=== PATIENT | female | born 1985 | race Caucasian/White ===

== ENCOUNTER 2018-11-20 08:35 | Outpatient (CLI) | payer SELFPAY ==
[2018-11-20] MEDS: Lactated Ringers 1,000 ML 125 ML IV (09:03)
[2018-11-20 09:07] VITALS: BMI 29.4
--- NOTE | 2018-11-22 06:56 | PCM.HP.BLA ---
History and Physical Date of Admission: 11/20/18 [facility] History of this : 33 yo female Ab0 with EDC 12/06/2018 by late Ultrasound, presents to Labor and Delivery for external cephalic version. care unremarkable. Follows at [facility] with customer program specialist. Pertinent Past Medical History: non-smoker Allergies: NKDA Medications: Vitamins Review of Systems: Non-contributory PHYSICAL EXAMINATION General Appearence: 33 yo female in no acute distress Vital Signs: AF, VSS Heart: RRR without rubs or gallops Lungs: CTA x 2 Breasts: deferred Abdomen: gravid Pelvis: Cervix: not examined Presentation: cephalic Station: no examined Fetus: single Size: AGA Movement: present Heart: present and reactive Impression /Plan: Intrauterine at 37+ weeks gestation with breech presentation. Plan external cephalic version attempt. Discussed RBAs and all questions answered.
--- NOTE | 2018-11-22 07:03 | OP.PCM_ITS ---
Report of Operation Date of Procedure: 11/20/18 Pre-Operative Diagnosis: Breech Presentation, 37+ Week Intrauterine Post-Operative Diagnosis: Breech Presentation, 37+ Week Intrauterine Surgery/Procedure Performed:: External Cephalic Version Attempt Description of Surgical Findings:: Pritchett in garrett breech presentation with posterior fundal placenta and normal amounts of amniotic fluid Type of Anesthesia:: None Estimated Blood Loss (mL): None Description of Procedure: After confirming reactive heart tones, ultrasound visualized the baby in a garrett breech position with the placenta noted as above as well as amniotic fluid noted as above. 4 attempts were made to rotate the fetus to cephalic presentation. 3 were attempted in the counterclockwise direction which provided the most movement of the baby and one was attempted in the clockwise direction. All of these attempts were unsuccessful likely due to engagement of the breech in the pelvis. Throughout the procedure heart tones were monitored with ultrasound with the procedure noted to be well-tolerated. Patient was monitored for 2 hours with reactive heart tones noted throughout and no decelerations. She was discharged to home and scheduled for a section on November 30. Patient is to continue her care with her seeing eye dog trainer and report immediately to labor and delivery if rupture of membranes or labor ensues.
== END 2018-11-20 12:10 | disposition home or self-care (01) ==
LOC: WPOUT 08:51 → WP 08:52
PROVIDERS: Referring Provider Obstetrics & Gynecology; Visit Provider Obstetrics & Gynecology
DX: O32.1XX0 Maternal care for breech presentation, not applicable or unspecified (principal); Z3A.37 37 weeks gestation of pregnancy
CPT/HCPCS: 96360; 96361 ×2; 36415; 59025; 59050; 59412; 76815; 86850; 86900; 86901; 99218; J7120; G0378

== ENCOUNTER 2018-11-26 05:45 | Outpatient (CLI) | payer SELFPAY ==
[2018-11-26 06:00] VITALS: BMI 29.5
--- NOTE | 2018-11-26 09:57 | OB.TRI.NOTE ---
History of Present Illness Was patient seen by the physician?: Yes Reason For Visit: R/O LABOR Date of Service: 11/26/18 Final BARR[place]: 12/06/18 Final [place] Source: US >20 weeks Gestational age: 38 Weeks and 4 Days History of Present Illness: 38+ week intrauterine who presents with some contractions. 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 Patient has not yet had any labs drawn. Baby is also known to be breech and version was attempted but unsuccessful. Allergies No Known Allergies Allergy (Verified 11/20/18 09:10) NST - FHR Rate Baby A NST Reactive:: Yes FHR Category:: Category I Impression/Plan 38+ week intrauterine with false labor and breech presentation. Not in labor. Reactive nonstress test. Will draw labs and released to home. Plan primary section next Friday. Return if labor resumes.
[2018-11-26 10:31] LABS: Color, Urine Yellow (Yellow); Glucose, Dipstick Normal (Normal); Ketone-Dipstick 5 mg/dl (Negative); Leukocyte Esterase-Dipstick 500 /ul (Negative); Nitrite-Dipstick Negative (Negative); Occult Blood-Urine 10 /ul (Negative); Protein-Dipstick 15 mg/dl (Negative); Urine Bilirubin Dipstick Negative (Negative); Urine Clarity Sl. Cloudy (Clear); Urine Urobilinogen Normal (Normal); Urine pH 6.5 (5.0 - 8.0)
[2018-11-26 10:37] LABS: Absolute Lymphocyte Count 2.65 X10^3/uL (0.83-4.51); Absolute Neutrophil Count 7.1 X10^3/uL (2.0-7.7); Basophil# 0.02 X10^3/uL; Basophil% 0.2 % (0-1); Eosinophil# 0.07 X10^3/uL; Eosinophils% 0.7 % (0-5); Hemoglobin 12.2 g/dL (12.0-15.0); Lymphocyte # 2.65 X10^3/ul (4.0); Lymphocyte % 25.1 % (19-41); Mean Corp Hgb Conc 34.9 g/dL (32-36); Mean Corpuscular Hgb 34.2 pg (27.0-32.0); Mean Platelet Vol. 8.8 fl (6.2-12.0); Monocyte# 0.67 X10^3/uL; Monocyte% 6.3 % (0-10); NRBC Flagged by Analyzer 0 % (0-5); Neutrophil % 67.2 % (47-70); Platelet Count 240 K/mm3 (150-450); RBC Distribution Width CV 12.7 % (11.6-14.6); RBC Distribution Width SD 45.6 fl (35.1-43.9); Red Blood Count 3.57 M/mm3 (4.2-5.4); White Blood Count 10.6 K/mm3 (4.4-11.0)
[2018-11-26 10:50] LABS: Red Blood Cells-Urine 0-5 SEEN /hpf (0-5); Squamous Epithelial Cells - UA 10-25 SEEN /hpf (5-10); White Blood Cells 10-25 SEEN /hpf (0-5)
[2018-11-26 10:51] LABS: Bacteria 2+ /hpf (None Seen); Mucous, Urine RARE /hpf (<or=2+); Yeast-Urine RARE /hpf (None Seen)
[2018-11-26 12:24] LABS: Rubella IgG 169.5 IU/mL
[2018-11-26 12:57] LABS: HIV - WCH Non-Reactive (Nonreactive); Hepatitis B Surface Antigen Non-Reactive (Nonreactive); Hepatitis C Antibody Non-Reactive (Nonreactive)
[2018-11-26 14:13] LABS: Chlamydia Trachomatis by PCR Negative (Negative); Neisserai gonorrhoeae by PCR Negative (Negative); Probe Check PASS; Sample Adequacy Control PASS; Specimen Processing Control PASS
[2018-11-27 01:46] LABS: Rapid Plasmin Reagin (RPR) NONREACTIVE (NONREACTIVE)
== END 2018-11-26 10:45 | disposition home or self-care (01) ==
LOC: WPOUT 05:58 → WP 11-27 13:31
PROVIDERS: Referring Provider Obstetrics & Gynecology; Visit Provider Obstetrics & Gynecology
DX: O47.1 False labor at or after 37 completed weeks of gestation (principal); O32.1XX0 Maternal care for breech presentation, not applicable or unspecified; Z3A.38 38 weeks gestation of pregnancy
CPT/HCPCS: 36415; 59025; 59050; 76815; 81001; 85025; 86592; 86703; 86762; 86803; 86850; 86900; 86901; 87340; 87491; 87591; 99218; G0378

== ENCOUNTER 2018-11-30 10:35 | Inpatient (IN) | payer SELFPAY ==
--- NOTE | 2018-11-29 23:04 | HP.PCM_ITS ---
History and Physical Date of Admission: 11/30/18 [facility] [place] ANTEPARTUM RECORD - HISTORY AND PHYSICAL (11/29/2018) History of This : This is a 33-year-old multiparous patient with breech presentation. Unable to complete version on labor and delivery approximately 1- 2 weeks ago. Given this we plan to proceed with primary section. OB Physician: SMITHA [place]'s Physician: ...................................................................... : 1985 Age: 33 Address: [address] [place] [address] Phone: (h) [phone] ([phone] Insurance Carrier: Emergency Contact: ...................................................................... Final BARR[place]: 12/06/18 By Ultrasound: PARITY: (G-Total Pregnancies P-Fullterm,Premature,Induced AB,Spont AB, Ectopics, Multiple,Living) [place] CONFIRMATION: By LMP: 03/08/18 Final [place]: 12/06/18 OB PROBLEM LIST: PNC with nailhead operator; Breech presentation unable to do version ALLERGIES:NKDA SOCIAL HISTORY: Non-smoker Job Description - [employer] of - [employer] Love Children Name(s) - Eran Menezes Frantz Melissa PHYSICAL EXAMINATION General Appearence: 33 yo female in no acute distress Vital Signs: AF, VSS Heart: RRR without rubs or gallops Lungs: CTA x 2 Breasts: deferred Abdomen: gravid Pelvis: Cervix: Presentation: cephalic Station: Fetus: Size: AGA Movement: present Heart: present Labs for : VANITA LOVE since 03/11/2018 ORDER DATEIN DESCRIPTION VALUE UNITS RANGE A+ COMMENT RAPID PLASMIN REAGIN (RPR) 11/26/18 NOTE Original Ordering Provider: Eden Leslie RPR NONREACTIVE NONREACTIVEw Reviewed by EDEN CT/[facility] BY PCR 11/26/18 NOTE Original Ordering Provider: Eden Leslie CHLAM TRAC PCR Negative Negative NG BY PCR Negative Negative Reviewed by EDEN HEPATITIS C ANTIBODY 11/26/18 NOTE Original Ordering Provider: Eden Leslie HEPATITIS C AB Non-Reactive Nonreactive Non Reactive: < 0.8 Equivocal: >/= 0.8 to < 1.0 Reactive: >/= 1.0 The CDC recommends that a reactive/equivocal HCV antibody result be followed up by the HCV Nucleic Acid Amplification test (824980) Reviewed by EDEN HEPATITIS B SURFACE ANTIGEN 11/26/18 NOTE Original Ordering Provider: Eden Leslie HEPB SURFACE AG Non-Reactive Nonreactive Reviewed by EDEN HIV - [facility] 11/26/18 NOTE Original Ordering Provider: Eden Leslie HIV [facility] Non-Reactive Nonreactive Reviewed by EDEN RUBELLA IGG 11/26/18 NOTE Original Ordering Provider: Eden Leslie RUBELLA IGG 169.5 IU/mL Antibody results Interpretation of Immune Status < 5 IU/ml Presumed Non-immune 5 - < 10 IU/ml Equivocal > or = 10 IU/ml Presumed Immune Reviewed by EDEN TYPE AND SCREEN 11/26/18 Reason for Type AND Screen/Red Cells: ROUTINE [facility]~[address] [place], [address]~ BLOOD TYPE GEL A POSITIVE N ANTIBODY SCREEN NEGATIVE N Reviewed by EDEN URINALYSIS, COMPLETE 11/26/18 NOTE Original Ordering Provider: Eden Leslie COLOR Yellow Yellow CLARITY Sl. Cloudy Clear GLUCOSE, UR Normal mg/dl Normal BILIRUBIN URINE Negative mg/dL Negative KETONE UR 5 mg/dl Negative H SP.GR. DIPSTX 1.010 1.002-1.030 PH UR 6.5 5.0 - 8.0 PROT DIPSTX 15 mg/dl Negative H UROBILI Normal mg/dl Normal NITRITE UR Negative Negative OCCULT BLOOD-UR 10 /ul Negative H LEUK ESTERASE 500 /ul Negative H WBC 10-25 SEEN /hpf 0-5 RBC-UA 0-5 SEEN /hpf 0-5 SQUAM EPI 10-25 SEEN /hpf 5-10 BACTERIA 2+ /hpf None Seen MUCUS, URINE RARE /hpf <OR=2+ YEAST-URINE RARE /hpf None Seen Reviewed by EDEN CBC W/DIFF, AUTOMATED 11/26/18 NOTE Original Ordering Provider: Eden Leslie WBC 10.6 K/mm3 4.4-11.0 RBC 3.57 M/mm3 4.2-5.4 L HGB 12.2 g/dL 12.0-15.0 HCT 35.0 % 37-47 L MCV 98.0 fL 81-99 MCH 34.2 pg 27.0-32.0 H MCHC 34.9 g/dL 32-36 RDW CV 12.7 % 11.6-14.6 RDW SD 45.6 fl 35.1-43.9 H PLT 240 K/mm3 150-450 MPV 8.8 fl 6.2-12.0 NEUT% 67.2 % 47-70 LY% 25.1 % 19-41 MONO% 6.3 % 0-10 EO% 0.7 % 0-5 BASO% 0.2 % 0-1 w IM GRAN % 0.500 % 0.0-0.9 IG% - Immature Granulocytes (promyelocytes, myelocytes and metamyelocytes) > 1% indicates that a LEFT SHIFT is Present. ABSOLUTE NEUT 7.1 X10 3/uL 2.0-7.7 ABSOLUTE LYMPH 2.65 X10 3/uL 0.83-4.51 NRBC, FLAGGED 0 % 0-5 Reviewed by EDEN OPERATIVE REPORT 11/22/18 [facility] Medical Records Department [address] [place] [id number] Operative Report 11/22/18 0703 MR#: [id number] Acct: [id number] Name: VANITA LOVE Rep #: [id number] : 1985 33 From: Eden Leslie MD PCP: Status: DEP FIORDALIZAI Y Location: [facility] Report of Operation Date of Procedure: 11/20/18 Pre-Operative Diagnosis: Breech Presentation, 37+ Week Intrauterine Post-Operative Diagnosis: Breech Presentation, 37+ Week Intrauterine Surgery/Procedure Performed:: External Cephalic Version Attempt Description of Surgical Findings:: Pritchett in garrett breech presentation with posterior fundal placenta and normal amounts of amniotic fluid Type of Anesthesia:: None Estimated Blood Loss (mL): None Description of Procedure: After confirming reactive heart tones, ultrasound visualized the baby in a garrett breech position with the placenta noted as above as well as amniotic fluid noted as above. 4 attempts were made to rotate the fetus to cephalic presentation. 3 were attempted in the counterclockwise direction which provided the most movement of the baby and one was attempted in the clockwise direction. All of these attempts were unsuccessful likely due to engagement of the breech in the pelvis. Throughout the procedure heart tones were monitored with ultrasound with the procedure noted to be well-tolerated. Patient was monitored for 2 hours with reactive heart tones noted throughout and no decelerations. She was discharged to home and scheduled for a section on November 30. Patient is to continue her care with her nailhead operator and report immediately to labor and delivery if rupture of membranes or labor ensues. 11/22/18708 Date Eden Leslie MD CC: Eden Leslie MD Signed Reviewed by EDEN HISTORY AND PHYSICAL EXAM 11/22/18 [facility] Medical Records Department [address] [place] [id number] History and Physical 11/22/18 0656 MR#: [id number] Acct: [id number] Name: VANITA LOVE Rep #: [id number] : 1985 33 From: Eden Leslie MD PCP: Status: TALI Bosch Location: [facility] History and Physical Date of Admission: 11/20/18 [facility] History of this : 33 yo female Ab0 with EDC 12/06/2018 by late Ultrasound, presents to Labor and Delivery for external cephalic version. care unremarkable. Follows at [facility] with nailhead operator. w Pertinent Past Medical History: non-smoker Allergies: NKDA Medications: Vitamins Review of Systems: Non-contributory PHYSICAL EXAMINATION General Appearence: 33 yo female in no acute distress Vital Signs: AF, VSS Heart: RRR without rubs or gallops Lungs: CTA x 2 Breasts: deferred Abdomen: gravid Pelvis: Cervix: not examined Presentation: cephalic Station: no examined Fetus: single Size: AGA Movement: present Heart: present and reactive Impression /Plan: Intrauterine at 37+ weeks gestation with breech presentation. Plan external cephalic version attempt. Discussed RBAs and all questions answered. w 11/22/18 0703 Date [facility]: Date (if applicable) w CC: dEen Leslie MD Signed Reviewed by EDEN FREDERICK AND ERICA 11/20/18 Reason for Type AND Screen/Red Cells: ROUTINE [facility]~[address] [place], [address]~ BLOOD TYPE GEL A POSITIVE N ANTIBODY SCREEN NEGATIVE N Reviewed by EDEN Impression /Plan: Intrauterine in garrett breech presentation. Unsuccessful version attempt. Plan primary section. Preparations in progress for delivery.
[2018-11-30] VITALS (16 sets, daily range): BP systolic 112–129; BP diastolic 46–76; PULSE 88–113; RESP 14–20; TEMP 36.5–36.8; O2SAT 92–99; BMI 29.3
[2018-11-30] MEDS: Lactated Ringers 1,000 ML 999 ML IV (10:50)
[2018-11-30 11:25] LABS: Absolute Lymphocyte Count 3.45 X10^3/uL (0.83-4.51); Absolute Neutrophil Count 8.2 X10^3/uL (2.0-7.7); Basophil# 0.02 X10^3/uL; Basophil% 0.2 % (0-1); Eosinophil# 0.05 X10^3/uL; Eosinophils% 0.4 % (0-5); Hematocrit 36.3 % (37-47); Hemoglobin 12.7 g/dL (12.0-15.0); Lymphocyte # 3.45 X10^3/ul (4.0); Lymphocyte % 27.4 % (19-41); Mean Corpuscular Volume 97.3 fL (81-99); Mean Platelet Vol. 8.7 fl (6.2-12.0); Monocyte# 0.77 X10^3/uL; Monocyte% 6.1 % (0-10); NRBC Flagged by Analyzer 0 % (0-5); Neutrophil # 8.23 X10^3/uL (2.7-7.7); Neutrophil % 65.5 % (47-70); Platelet Count 278 K/mm3 (150-450); RBC Distribution Width CV 12.6 % (11.6-14.6); RBC Distribution Width SD 44.9 fl (35.1-43.9); Red Blood Count 3.73 M/mm3 (4.2-5.4); White Blood Count 12.6 K/mm3 (4.4-11.0)
[2018-11-30] MEDS: Lactated Ringers 1,000 ML 250 ML IV (11:51)
--- NOTE | 2018-11-30 12:10 | OP.PCM_ITS ---
Delivery Classification: Scheduled Final [place]: 12/06/18 Final [place] Source: US >20 weeks Gestational age: 39 Weeks and 1 Days director of cardiac cath lab: Jocy Roberts Type of Anesthesia:: Spinal - With Duramorph Implants Used: None Date of Procedure: 11/30/18 Pre-Operative Diagnosis: Term Intrauterine , Breech Presentation Post-Operative Diagnosis: Term Intrauterine , Breech Presentation Description of Procedure: Surgeon: Yahir Leslie MD, FACOG Anesthesia: Nuha Camarena CRNA Anesthesia: Spinal with Duramorph Procedure: Primary low Transverse Cervical Caesarean Section Findings: Viable male with Apgars of 8/9 in garrett breech presentation with clear amniotic fluid and normal three-vessel placenta. Indication: This is a 33-year-old 5 para 4 who presents for her first C- section at 39+ weeks gestation. care has remarkable for breech presentation after failed version attempt about 1-1/2 weeks ago. She saw a pipelaying fitter for the majority of her and [facility] The patient has been counseled regarding the risk and indications of this procedure including the possibility of bleeding infection and injury to surrounding structures such as bowel bladder. All questions were answered. Procedure: Patient was taken to the operating room where after spinal anesthesia was placed, the patient was prepped and draped in usual sterile fashion and a Chen catheter was placed. The abdomen was entered through a Pfannenstiel incision and peritoneum was entered bluntly. After developing a bladder flap on the lower uterine segment a low transverse incision was made on the uterus and breech was easily delivered onto the operative field and after delivery of the baby the nose mouth and oropharynx were bulb suctioned. Subsequently a viable male was born with Apgars of 8/9. The was noted to cry move all extremities vigorously on the operative field. The umbilical cord was doubly clamped and ligated and handed to the nursery personnel who were present for the delivery. Placenta was delivered and noted to be 3 vessels and normal. Uterus was exteriorized and remaining placental tissue was removed. The uterus was then closed in 2 layers first with running locked 0 Vicryl suture followed by a second imbricating layer with 0 Vicryl suture. 0 Vicryl suture was then used in a horizontal mattress interrupted fashion to affect final hemostasis of the uterine incision line. Normal fallopian tubes and ovaries were visualized and the uterus was returned to the pelvis. Hemostasis was noted and rectus abdominis muscles were reapproximated in the midline with interrupted Number 0 Vicryl suture in a horizontal mattress fashion. Fascia was closed with running Number 1 PDS Strata fix suture. Subcutaneous tissue was irrigated with copious amounts of saline solution and then closed with running 3-0 Vicryl suture. Skin was closed with 4-0 monocryl suture in a running subcuticular fashion. Steri strips, telfa, and tape were placed across the incision. The patient tolerated the procedure well and was taken to the recovery room in satisfactory condition. Sponge, needle, and instrument counts were all reportedly correct. EBL was less than 500 cc. Ancef 2 gms IV was given prior to the procedure. Spicemen to Pathology: None Complications: None Amniotic Fluid Description: Clear Placenta Disposition: [facility] Drain: Chen to straight drain Fluids Replaced: Crystalloid Cord Entanglement: None Cord Vessel Description: 3 Vessels Esitmated Blood Loss (ml): 500 cc Gender: Male (1 minute): 8 (5 minute): 9 Antibiotic Given: Ancef 2 grams IV x1 Pt instructed on risks of surgery: Bleeding, Infection, Injury to surrounding structure(s) including bowel and bladder Complications: None - Admit VTE Documentation VTE Present on Admission: Yes VTE Mechan Device Prophylaxis: SCD's
--- NOTE | 2018-11-30 12:15 | DCINST_ITS ---
Discharge Diet: No Restrictions Discharge Activity: May not drive while taking narcotic pain medications., May Shower, May Take a Tub Bath May resume sexual activity in: 4-6 weeks Lifting Restrictions: 20 pounds Additional Activity Instructions:: Nothing in the vagina for 4-6 weeks. You may return to work/school in 6 weeks. Call your doctor if your incision/area has: Continuous Slow Oozing, Sudden Increased Bleeding, Increased Pain/ Swelling, Increased Redness, Foul Smelling Discharge Call your doctor if you observe: Fever of 101 or Higher, Inability to urinate, Inability to have a bowel movement, Using more than one pad per hour Additional Instructions: If you experience any of the following, contact your healthcare provider. * Bleeding that soaks a pad every hour for 2 hours * Unrelieved incision or abdominal pain * Swelling, redness, discharge or bleeding from your incision or episiotomy site * Your incision begins to separate * Problems urinating (including inability to urinate or burning while urinating). * Visual changes * Severe headache * Flu-like symptoms * Pain or redness in one of both of your breasts * Pain, warmth, tenderness or swelling in your legs, especially the calf area * Frequent nausea and vomiting * Symptoms of depression or anxiety If you experience any of the following, call 911 or go to the nearest Emergency Room. * Chest pain * Problems breathing * Seizure activity * Partial or complete paralysis of a body part, slurred speech, weakness or drooping of the face, or a sudden inability to walk or hold your balance Allergies/Adverse Reactions: Allergies No Known Allergies Allergy (Verified 11/20/18 09:10) Medications to take at Discharge Pnv No.95/Ferrous Fum/Folic AC [ Vitamin Tablet] 1 tab PO DAILY 11/20/18 Docusate Sodium [Colace] 100 mg PO BID PRN PRN #60 cap 11/30/18 Oxycodone [Oxyir] 5 mg PO Q6H PRN PRN 7 Days #20 tab 11/30/18 The following prescriptions were given: Docusate Sodium [Colace] 100 mg PO BID PRN PRN #60 cap PRN Reason: Constipation Prescription Printed Oxycodone [Oxyir] 5 mg PO Q6H PRN PRN 7 Days #20 tab PRN Reason: Severe Pain () Prescription Printed Follow-Up: Call to make an appointment with your doctor for an incision check in 1-2 weeks. You will also need a 6 week post- follow up appointment. Test results from this visit will be discussed in further detail at your follow- up appointment, if applicable. Please Follow Up With: Yahir Leslie MD - [phone] When: Call to make an appointment for an incision check in 2 weeks. Primary Care Physician: Care Physician,No Primary [Primary Care Provider] -
[2018-11-30 12:28] LABS: Partial Thromboplast Time 29.1 Seconds (24.1-36.2); Prothrombin Time (Protime)PT. 13.1 SECONDS (11.7-14.9)
[2018-11-30] MEDS: Sodium Citrate/Citric Acid 30 ML UDC PO (12:48)
[2018-11-30] MEDS: Cefazolin 2 GM in 0.9% Normal Saline 100 ML IV (13:31)
[2018-11-30] MEDS: Lactated Ringers 1,000 ML 100 ML IV (16:20)
[2018-11-30] MEDS: Oxytocin 30 units/NS 500 ml 30 UNITS/500 ML IV.SOLN 167 UNITS IV (16:21)
[2018-11-30] MEDS: Ketorolac 30 MG/ML Syringe IV (19:54)
[2018-11-30] MEDS: Cefazolin 1 GM/50 ML BAG IV (21:29)
[2018-12-01] VITALS (9 sets, daily range): BP systolic 86–113; BP diastolic 42–78; PULSE 85–97; RESP 14–18; TEMP 36.6–37.1; O2SAT 95–98
[2018-12-01] MEDS: Ketorolac 30 MG/ML Syringe IV ×2 (01:49→07:57)
[2018-12-01] MEDS: Cefazolin 1 GM/50 ML BAG IV (05:31)
[2018-12-01 05:59] LABS: Hematocrit 31.1 % (37-47); Hemoglobin 10.7 g/dL (12.0-15.0); Mean Corp Hgb Conc 34.4 g/dL (32-36); Mean Corpuscular Hgb 34.4 pg (27.0-32.0); Mean Platelet Vol. 8.7 fl (6.2-12.0); Platelet Count 214 K/mm3 (150-450); RBC Distribution Width CV 12.7 % (11.6-14.6); RBC Distribution Width SD 46.2 fl (35.1-43.9); Red Blood Count 3.11 M/mm3 (4.2-5.4); White Blood Count 17.1 K/mm3 (4.4-11.0)
--- NOTE | 2018-12-01 06:39 | PCM.PN.OB ---
Subjective: Patient without complaints. Tolerating diet well. Breast-feeding is going well and patient denies flatus. Wants to go home later today if baby is able to go. - Physical Exam Vital Signs Temp Pulse Resp BP Pulse Ox 98.5 F 87 14 112/49 L 97 12/01/18 04:00 12/01/18 05:49 12/01/18 05:49 12/01/18 04:00 12/01/18 05:49 Oxygen Delivery Method Room Air Weight: 165 lb 9.074 oz Body Mass Index (BMI) 29.3 Intake and Output for Last 24 Hours 11/29/18 11/30/18 12/01/18 23:59 23:59 23:59 Intake Total 5139.17 / 5139.17 650 / 650 Output Total 2400 / 2400 1800 / 1800 Balance 2739.17 / 2739.17 -1150 / -1150 Laboratory Tests Past 24 Hrs 11/30/18 11/30/18 11/30/18 10:50 10:50 12:15 WBC 12.6 H RBC 3.73 L Hgb 12.7 Hct 36.3 L MCV 97.3 MCH 34.0 H MCHC 35.0 RDW Std Deviation 44.9 H RDW Coeff of Aster 12.6 Plt Count 278 MPV 8.7 Immature Gran % (Auto) 0.400 Neut % (Auto) 65.5 Lymph % (Auto) 27.4 Warrick % (Auto) 6.1 Eos % (Auto) 0.4 Baso % (Auto) 0.2 Absolute Neuts (auto) 8.2 H Absolute Lymphs (auto) 3.45 Nucleated RBC % 0 PT 13.1 INR 1.0 APTT 29.1 Blood Type A POSITIVE Antibody Screen NEGATIVE 12/01/18 05:38 WBC 17.1 H RBC 3.11 L Hgb 10.7 L Hct 31.1 L MCV 100.0 H MCH 34.4 H MCHC 34.4 RDW Std Deviation 46.2 H RDW Coeff of Aster 12.7 Plt Count 214 MPV 8.7 Immature Gran % (Auto) Neut % (Auto) Lymph % (Auto) Warrick % (Auto) Eos % (Auto) Baso % (Auto) Absolute Neuts (auto) Absolute Lymphs (auto) Nucleated RBC % PT INR APTT Blood Type Antibody Screen Wound is clean, dry, intact. Good urine output. Hemoglobin okay. Medical Necessity - Tobacco Use Smoking Status: Never smoker Assessment/Plan Doing well postoperative day #1 status post primary section for breech presentation. Will discharge to home with routine instructions if baby is able to go home later today. Home-going instructions given.
[2018-12-01] MEDS: 0.9% Saline Lock 10 ML Syringe IV ×2 (07:57→08:00)
[2018-12-01] MEDS: Senna/Docusate Sodium 1 Tablet PO (07:57)
[2018-12-01] MEDS: Ibuprofen 600 MG Tablet PO (17:05)
== END 2018-12-01 19:43 | disposition home or self-care (01) | DRG 788 ==
PROVIDERS: Admitting Provider Obstetrics & Gynecology; Referring Provider Obstetrics & Gynecology; Visit Provider Obstetrics & Gynecology
PROC: 10D00Z1 Extraction of Products of Conception, Low, Open Approach (ICD-10-PCS; CPT 59514; principal; 2018-11-30 12:15)
DX: O32.1XX0 Maternal care for breech presentation, not applicable or unspecified (principal); Z3A.39 39 weeks gestation of pregnancy; Z37.0 Single live birth
CPT/HCPCS: 85025; 85027; 85610; 85730; 86850; 86900; 86901; 99218; J7120; A4216; G0378; J2405

== ENCOUNTER → 2020-07-25 | Outpatient (CLI) | payer SELFPAY ==
[2018-11-30 11:05] VITALS: BMI 29.3
== END | disposition home or self-care (01) ==
LOC: LABSPEC 07-26 11:03
PROVIDERS: Visit Provider Obstetrics & Gynecology
DX: Z36.85 Encounter for antenatal screening for Streptococcus B (principal)
CPT/HCPCS: 87081

== ENCOUNTER 2020-08-10 00:30 | Outpatient (CLI) | payer SELFPAY ==
[2018-11-30 11:05] VITALS: BMI 29.3
[2020-08-10 00:43] VITALS: O2SAT 97
[2020-08-10 00:44] VITALS: BP 129/79; PULSE 80
[2020-08-10 00:58] VITALS: BMI 28.5
--- NOTE | 2020-08-20 13:19 | OB.TRI.NOTE ---
HPI - General HPI Narrative VANITA MUÑOZ, is a 34 F who presents at 39 weeks gestation with some contractions. Maternal Data Information [place] Calculator Estimated Delivery Date Method Current WG Current Estimate 08/17/20 Manual 40w 3d Other Estimates 08/02/20 LMP (Uncertain) 42w 4d PFSH PFSH Medical History (Updated 08/20/20 @ 13:[address] Yahir Leslie MD) History of pre-term labor Home Medications PNV cmb#95-ferrous fumarate-FA 1 tab PO DAILY 11/20/18 [History Last Taken 08/15/20 08:00] Allergy/AdvReac Type Severity Reaction Status Date / Time No Known Allergies Allergy Verified 08/16/20 06:47 Surgical History (Updated 08/16/20 @ 09:[address] Jenn Irvin MD) Previous section Social History Smoking Status: Former smoker History 6 Elective abortions 0 Hx Para 5 Spontaneous abortions 0 Hx # Term Pregnancies 4 Ectopic pregnancies 0 Hx # Pregnancies 1 Multiple births 0 # of living children 5 NST FHR Rate Baby A NST Reactive:: Yes FHR Category:: Category I Assessment & Plan (1) : COMMENT: 39 week IUP with false labor. Reactive NST. No cervical change. Discharged with routine instructions.
== END 2020-08-10 04:00 ==
LOC: WPOUT 00:37 → WP 00:37
PROVIDERS: Visit Provider Obstetrics & Gynecology
DX: O47.1 False labor at or after 37 completed weeks of gestation (principal); Z3A.39 39 weeks gestation of pregnancy; Z87.891 Personal history of nicotine dependence
CPT/HCPCS: 59025; 59050; 99218; G0378

== ENCOUNTER 2020-08-16 08:40 | Inpatient (IN) | payer SELFPAY, OTHER ==
[2020-08-16] VITALS (14 sets, daily range): BP systolic 103–122; BP diastolic 53–77; PULSE 65–91; RESP 18; TEMP 36.6–37.1; O2SAT 97; BMI 28.3
--- NOTE | 2020-08-16 09:08 | HP.PCM.OB_ITS ---
HPI - General General Date of Admission: 08/16/20 HPI Narrative ERUM LOVE, is a 34 F 6 para 4105 with hx prior section x 1 presents in labor. Maternal Data Information [place] Calculator Estimated Delivery Date Method Current WG Current Estimate 08/17/20 Manual 39w 6d Other Estimates 08/02/20 LMP (Uncertain) 42w 0d Final [place] Source: US <20 weeks PFSH Home Medications PNV cmb#95-ferrous fumarate-FA 1 tab PO DAILY 11/20/18 [History Last Taken 04/06 08:00] Allergy/AdvReac Type Severity Reaction Status Date / Time No Known Allergies Allergy Verified 08/16/20 06:47 Surgical History (Updated 08/16/20 @ 09:[address] Jenn Irvin MD) Previous section Social History Smoking Status: Never smoker History 6 Elective abortions 0 Hx Para 5 Spontaneous abortions 0 Hx # Term Pregnancies 4 Ectopic pregnancies 0 Hx # Pregnancies 1 Multiple births 0 # of living children 5 NST FHR Rate Baby A Baseline: 130 Variability:: Moderate Accelerations:: 15 x 15 Decelerations:: None NST Reactive:: Yes FHR Category:: Category I Uterine Activity:: 3/10 Vital Signs Vital Signs Vital Signs: 08/16/20 06:11 08/16/20 07:14 08/16/20 07:15 Temperature 98.4 F 97.9 F Temperature Source Temporal Pulse Rate 91 90 Blood Pressure 111/66 118/73 BP Systolic 111 118 BP Diastolic 66 73 Weight Weight: 72.575 kg Body Mass Index (BMI) 28.3 Physical Exam Const alert, oriented x3 and no apparent distress HEENT normocephalic Resp normal respiratory effort, normal air movement and clear to auscultation bilaterally Cardio regular rate and regular rhythm GI normal to inspection, nondistended, normoactive bowel sounds, soft to palpation, non-tender and non-distended Inspection: gravid Manual OB Exam: dilated /-2 Labs Labs Labs: Blood Type A POSITIVE Antibody Screen NEGATIVE Hct 31.1 % (37-47) L Hgb 10.7 g/dL (12.0-15.0) L Rubella IgG Antibody 169.5 IU/mL Hep Bs Antigen Non-Reactive (Nonreactive) HIV 1&2 Antibody Non-Reactive (Nonreactive) C.trachomatis DNA (PCR) Negative (Negative) Rhogam given: No ACOG ANTEPARTUM RECORD - HISTORY AND PHYSICAL (08/16/2020) Name: ERUM LOVE History of this : This is a 34 year old [id number] presents at 39 wks + 6 days gestation. OB Physician: Yahir Leslie MD Brothers's Physician: Dr Bill ...................................................................... : 1985 Age: 34 Address: [address] [place] [address] Phone: [phone]) [phone] Insurance Carrier: Emergency Contact: ROZ COSTELLODER [phone] ...................................................................... Final [place]: 08/17/20 By Ultrasound: 17 weeks 6 days, Crystal PARITY: (G-Total Pregnancies P-Fullterm,Premature,Induced AB,Spont AB, Ectopics, Multiple,Living) [place] CONFIRMATION: By LMP: 10/27/19 Initial Exam: 08/17/20 By First Ultrasound Exam: 08/17/20 Final [place]: 08/17/20 OB PROBLEM LIST: Takes a variety (6) supplements to support her . Interested in a . States never had a pap test. No cultures or labs yet w this pg. 3 houir GTT normal Lives 1 houir from [facility] ALLERGIES: No Known Drug Allergies MEDICATIONS: 28 mg iron-800 mcg tablet One pill by mouth once a day Supplement (s) [No Strength] 1 PO TID [place] Supplement (s) [No Strength] 1 PO TID wild yam Supplement (s) [No Strength] As Directed Fiber Supplement (s) [No Strength] One pill by mouth three times a day anti mis Supplement (s) [No Strength] One pill by mouth three times a day progesteone herb Supplement (s) [No Strength] david Harrison SOCIAL HISTORY: Smoking - denies smoking Alcohol Use - occasionally not while Diet - balanced Diet, One cup of coffee and Water- 3 + liters Lifestyle - moderate stress lifestyle Exercise - Active w home and chores. Enc to take short walks most days. 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 Emergency ONLY. Children Name(s) - Eran Menezes Daniel, Rosie, Jonas PRIOR DELIVERY HISTORY DEL DATE GEST LAB WT LB WT OZ TYPE ANES LABOR TX 13 Feb 24 38 0 6 0 Vag unknown No 15 Oct 12 29 0 3 0 Vag unknown No 16 Nov 20 39 0 7 11 C-Sec Spinal No 18 Henrry 14 36 0 5 9 Vag unknown No 25 Mar 16 38 0 7 9 Vag unknown No ANTEPARTUM FLOW CHART VISIT GE RTC FU F F VT U U DATE WK MD WKS HT PN HR M SS BP ED WT VT GL D EF ST __ ____ ___ __ __ ___ __ __ __ ___ __ __ __ ___ __ 01 Aug JM 1 39 V + + 112/68 0 158 - - 2 50 -3 July JMW 1 38 V + + 128/70 0 158 - - 2 50 -2 July JMW 1 37 + + 108/68 sl 158 - - July JMW 1 36 V + + 104/72 sl 156 - - ft 50 -2 July JMW 1 35 + + 110/72 sl 160 - - Jun JMW 3 32 + + 114/68 0 156 ne ne Jun 12 JMW 3 30 + + 114/68 0 150 - - 02 Jun 09 JMW 3 26 + + 116/68 0 150 - - ANTEPARTUM NOTE(S): Aug 15 2020: Aug 08 2020: Ctxs-occas and Doing Well Aug 01 2020: Ctxs-occas, Good FM Jul 25 2020: GBS Today,LARC signed Jul 18 2020: Ctxs-mild, Good FM Jun 27 2020: Doing Well, 3 hour normal Jun 06 2020: CBC,OGCT and Labs drawn today,Good FM May 16 2020: Good FM, no previa incidental u/s COMPREHENSIVE ANTEPARTUM NOTE(S): Aug 15 2020: Erum and her are here for visit at 39.5 w. Feeling well. Some cramping and irreg contr at home. They were into WP last week but not in labor. Baby active. Consents for read and signed. No edema. Even on the hot days. DRC. Aug 15 2020: 39wk, pt desires r/b/a discussed pt agrees and signed consent. Aug 04 2020: H faxed o OB Jul 28 2020: H taken to OB. tkg May 16 2020: Erum presents here today with spouse for transfer of care in preparation for at [facility] with JW. Juan Francisco MATHEW. Glucola/Instructions given and all labs will be drawn at next visit. 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 Erum's is Roz who does carpentry work. They have children ages 9,8,6,5 and 1 1/2 y. They're pleased about the . Their last child was a PCS for breech and she'd like a . Erum has NKAD or l REVIEW OF SYSTEMS: GENERAL - Denies fever, or chills SKIN - Denies rash, new skin lesions, or change in moles EYES - Denies blurred vision, or change in visual acuity EARS - Denies ear pain, or difficulty hearing NOSE - Denies nasal congestion, discharge, or bleeding MOUTH - Denies sore throat, or difficulty swallowing NECK - Denies pain or swelling RESPIRATORY - Denies shortness of breath, cough, wheezing CARDIOVASCULAR - Denies palpitations, chest pain, orthopnea, PND, peripheral edema, syncope or claudication GASTROINTESTINAL - Denies nausea, vomiting, diarrhea, constipation, Denies abdominal pain, melena and or bright red blood GENITOURINARY - Denies dysuria, frequency of urination, urgency, or hesitancy MUSCULOSKELETAL - Denies joint or muscle pain, or back pain NEUROLOGICAL - Denies localized numbness, weakness, or tingling PSYCHIATRIC - Denies depression, anxiety, substance abuse or suicide attempts ENDOCRINE - Denies heat or cold intolerance, weight loss or gain, increasing thirst HEMATO-IMMUNOLOGIC - Denies easy bruising, bleeding, oral ulcerations or recurrent infections GENETICS SCREENING: Age 35+ years: No Thalassemia: No Neural Tube Defect: No Down Syndrome: No RAFAEL-SACHS: No Sickle Cell Disease: No Hemophilia: No Musc. Dystrophy: No Cystic Fibrosis: No-declines screening [place] Chorea: No Mental Retardation: No Fragile X: No Other genetic: No Other defects: No SABs/still births: No Drugs since LMP: No INFECTION HISTORY: High risk AIDS: No High risk Hepatitis: No Exposed to TB: No Exposed to Herpes: No Rash/viral illness since LMP: No History of STD: No MENSTRUAL HISTORY: PAST SUMMARY: PARITY: 1. Total Pregnancies............ 6 2. Full Term Pregnancies........ 4 3. Premature.................... 1 4. Abortions - Induced.......... 0 5. Abortions - Spontaneous...... 0 6. Ectopics..................... 0 7. Multiple Births.............. 0 8. Living Children.............. 5 PAST #1: Date of :.................. 02/26/11 Gestation Weeks:................ 38 Length of labor(hours):......... 0 Sex:............................ F Weight-lbs:............... 6 Weight-oz:................ 0 Type of Delivery:............... Vag Type of Anesthesia:............. unknown Place of Delivery:.............. [place] Treatment of Labor?:.... No Comment: PAST #2: Date of :.................. 12/30/11 Gestation Weeks:................ 29 Length of labor(hours):......... 0 Sex:............................ M Weight-lbs:............... 3 Weight-oz:................ 0 Type of Delivery:............... Vag Type of Anesthesia:............. unknown Place of Delivery:.............. [place] Treatment of Labor?:.... No Comment: PAST #3: Date of :.................. 09/01/13 Gestation Weeks:................ 36 Length of labor(hours):......... 0 Sex:............................ M Weight-lbs:............... 5 Weight-oz:................ 9 Type of Delivery:............... Vag Type of Anesthesia:............. unknown Place of Delivery:.............. [place] Treatment of Labor?:.... No Comment: PAST #4: Date of :.................. 04/10/15 Gestation Weeks:................ 38 Length of labor(hours):......... 0 Sex:............................ F Weight-lbs:............... 7 Weight-oz:................ 9 Type of Delivery:............... Vag Type of Anesthesia:............. unknown Place of Delivery:.............. [place] Treatment of Labor?:.... No Comment: PAST #5: Date of :.................. 12/01/19 Gestation Weeks:................ 39 Length of labor(hours):......... 0 Sex:............................ M Weight-lbs:............... 7 Weight-oz:................ 11 Type of Delivery:............... C-Sect Type of Anesthesia:............. Spinal Place of Delivery:.............. [place] Treatment of Labor?:.... No Comment: BREECH PHYSICAL EXAMINATION General Appearence: 34 yo female in no acute distress Vital Signs: AF, VSS Heart: RRR without rubs or gallops Lungs: CTA x 2 Breasts: deferred Abdomen: gravid Pelvis: Cervix: Presentation: cephalic Station: Fetus: Size: AGA Movement: present Heart: present LAB TEST(S) ORDERED SINCE:11/21/19 07/29/2020 RULE OUT BETA STREP (GRP. B) 06/21/2020 Initial OB Labs 06/21/2020 GLUCOSE TOLERANCE-3 HOUR 06/07/2020 POMERENE 3 [CCL] 06/07/2020 HEPATITIS C AB IA [CCL] 06/06/2020 URINALYSIS 06/06/2020 TSH 06/06/2020 GLUCOSE CHALLENGE 50GM 1 HOUR 06/06/2020 CBC + DIFF 06/06/2020 BB TYPE == ==== Order Observation Description Value Ref_Range A* Site == ==== RULE OUT BETA S NOTE REYES GLUCOSE TOLERAN NOTE [facility] GLUCOSE TOLERAN GLUCOSE TOLERANCE-3 HOUR [facility] 3 HOUR GLUCOSE TOLERANCE Reference Range BLOOD Adult(non) Adult() FASTING _78 mg/dl <100 mg/dL 95 mg/dL 06/21/204.WKK. 1 HOUR _169 mg/dl 70-115 mg/dL 180 mg/dL 06/21/204.WKK. 2 HOUR _143 mg/dl <140 mg/dL 155 mg/dL 06/21/20.WKK. 3 HOUR _77 mg/dl 70-115 mg/dL 140 mg/dL 06/21/204.WKK. URINE-GLUCOSE Fasting......... _NC (NORMAL) 06/21/20.WKK. 1 hour.......... _NC (NORMAL) 06/21/20.WKK. 2 hours......... _NC (NORMAL) 06/21/20.WKK. 3 hours......... _NC (NORMAL) 06/21/204.WKK. URINE-KETONES Fasting......... _NC (NEGATIVE) 06/21/20.WKK. 1 hour.......... _NC (NEGATIVE) 06/21/20.WKK. 2 hour.......... _NC (NEGATIVE) 06/21/204.WKK. 3 hour.......... _NC (NEGATIVE) 06/21/20.WKK. NC: NOT COLLECTED POMERENE 3 [CCL NOTE [facility] [[facility]L RPR Non Reactive NR [facility] [CCL HEPATITIS B SURF. AG Negative NEGAT [facility] [[facility]L RUBELLA IGG AB, QUAL Positive NEGAT A [facility] Sample is considered positive for IgG antibodies to rubella virus. A positive result indicates previous exposure to Rubella virus or vaccination. [facility] [[facility]L RUBELLA IGG AB 5.85 Indexlue [facility] Index values are interpreted as follows: Negative specimens <0.90 Equivocol specimens 0.90 to 0.99 Positive specimens >0.99 The magnitude of the measured result is not indicative of the amount of antibody present. [facility] [address] [place] [address] Conrado Root III, M.D. [id number] HEPATITIS C AB NOTE [facility] HEPATITIS C AB HEPATITIS C AB IA Negative NEGAT [facility] [address] [place] [address] Conrado Root III, M.D. [id number] BB TYPE NOTE [facility] BB TYPE BB TYPE [facility] TYPE, Rh, AND SCREEN BB TYPE ABO A [facility] BB TYPE RH POS [facility] BB TYPE ANTIBODY SCR negative [facility] GLUCOSE CHALLEN NOTE [facility] GLUCOSE CHALLEN GLUCOSE CHALLENGE 50GM 1 JPLAB GLUCOSE CHALLENGE 50 GMS 1 HOUR GLUCOSE CHALLEN GLUCOSE 1HR 149 mg/dl 70 - 140 H [facility] TSH NOTE [facility] TSH TSH 1.68 uIU/ml 0.35 - 3.74 [facility] URINALYSIS NOTE [facility] URINALYSIS URINALYSIS [facility] URINALYSIS URINALYSIS SPECIMEN TYPE Clean catch [facility] URINALYSIS COLOR yellow NORMAL: YELLOW JPL[facility] URINALYSIS CLARITY clear NORMAL: CLEAR [facility] URINALYSIS PH 6.5 NORMAL: 5.0-8.0 [facility] URINALYSIS PROTEIN NEG NORMAL: NEGATIV [facility] URINALYSIS GLUCOSE NORM NORMAL: NORMAL [facility] URINALYSIS KETONE NEG NORMAL: NEGATIV [facility] URINALYSIS BILIRUBIN NEG NORMAL: NEGATIV [facility] URINALYSIS BLOOD NEG NORMAL: NEGATIV [facility] URINALYSIS UROBILINOG NORM NORMAL: NORMAL JPMHLAB URINALYSIS SP GRAVITY 1.015 NORMAL: 1.010-1 [facility] URINALYSIS NITRITE NEG NORMAL: NEGATIV [facility] URINALYSIS LEUKOCYTES NEG NORMAL: NEGATIV [facility] URINALYSIS MICROSCOPIC NOT INDICATED [facility] CBC + DIFF NOTE [facility] CBC + DIFF CBC + DIFF [facility] CBC-COMPLETE BLOOD COUNT CBC + DIFF WBC 12.1 x 10EE3/UL 4.5 - 10.8 H [facility] CBC + DIFF RBC 3.40 x 10EE6/UL 4.10 - 5.30 L [facility] CBC + DIFF HEMOGLOBIN 11.8 g/dl 12.0 - 16.0 L [facility] CBC + DIFF HEMATOCRIT 33.1 % 34.0 - 46.0 L [facility] CBC + DIFF MCV 97 fl 80 - 99 [facility] CBC + DIFF MCH 35 pg 27 - 33 H [facility] CBC + DIFF MCHC 36 X10 3 32 - 36 [facility] CBC + DIFF RDW/CV 13.0 % 12.0 - 15.6 [facility] CBC + DIFF PLATELET 298 x10EE3/UL 150 - 450 [facility] CBC + DIFF MPV 6.4 fl 6.6 - 10.5 L [facility] AUTOMATED DIFFERENTIAL CBC + DIFF NEUT % 73.2 % 46.0 - 76.0 [facility] CBC + DIFF LYMPH % 21.4 % 20.0 - 45.0 [facility] CBC + DIFF MONOS % 4.7 % 0.0 - 10.0 [facility] CBC + DIFF EO % 0.5 % 0.0 - 7.0 [facility] CBC + DIFF BASO % 0.2 % 0.0 - 2.0 [facility] CBC + DIFF LYMPH # 2.60 x10EE3/UL 0.80 - 2.80 [facility] CBC + DIFF NEUT # 8.90 x10EE3/UL 1.50 - 7.10 H [facility] CBC + DIFF MONO # 0.60 x10EE3/UL 0.20 - 1.00 [facility] CBC + DIFF EO # 0.10 x10EE3/UL 0.00 - 0.50 [facility] CBC + DIFF BASO # 0.00 x10EE3/UL 0.00 - 0.10 [facility] CBC + DIFF MANUAL DIFF N/A [facility] CBC + DIFF MORPHOLOGY N/A JPM[facility]AB {CD] Initial OB Labs HIV Test Negative - scanned Negative REYES Group B Beta Streptococcus is not isolated. Assessment & Plan (1) 39 weeks gestation of : PLAN: Admit in labor Expectant management
[2020-08-16] MEDS: Lactated Ringers 1,000 ML 50 ML IV (09:30)
[2020-08-16 09:51] LABS: Absolute Lymphocyte Count 3.44 X10^3/uL (0.83-4.51); Absolute Neutrophil Count 7.8 X10^3/uL (2.0-7.7); Basophil# 0.03 X10^3/uL; Basophil% 0.2 % (0-1); Eosinophil# 0.03 X10^3/uL; Eosinophils% 0.2 % (0-5); Hematocrit 36.6 % (37-47); Hemoglobin 12.9 g/dL (12.0-15.0); Lymphocyte # 3.44 X10^3/ul (0.83-4.51); Lymphocyte % 28.4 % (19-41); Mean Corp Hgb Conc 35.2 g/dL (32-36); Mean Corpuscular Hgb 33.9 pg (27.0-32.0); Mean Corpuscular Volume 96.3 fL (81-99); Mean Platelet Vol. 8.7 fl (6.2-12.0); Monocyte# 0.82 X10^3/uL; Monocyte% 6.8 % (0-10); NRBC Flagged by Analyzer 0 % (0-5); Neutrophil # 7.76 X10^3/uL (2.7-7.7); Neutrophil % 64.1 % (47-70); Platelet Count 258 K/mm3 (150-450); RBC Distribution Width CV 12.5 % (11.6-14.6); RBC Distribution Width SD 43.5 fl (35.1-43.9); White Blood Count 12.1 K/mm3 (4.4-11.0)
--- NOTE | 2020-08-16 10:23 | PN.OBGYN_ITS ---
Subjective Subjective Going natural, breathing through contractions Objective Data Objective Data Vital Signs: Vital Signs Temp Pulse BP 97.9 F 90 118/73 08/16/20 07:15 08/16/20 07:14 08/16/20 07:14 Weight: 160 lb Body Mass Index (BMI) 28.3 Lab / Micro Data Result Diagrams: 08/16/20 09:30 Labs: Laboratory Results - last 24 hr 08/16/20 09:30 WBC 12.1 H RBC 3.80 L Hgb 12.9 Hct 36.6 L MCV 96.3 MCH 33.9 H MCHC 35.2 RDW Std Deviation 43.5 RDW Coeff of Aster 12.5 Plt Count 258 MPV 8.7 Immature Gran % (Auto) 0.300 Neut % (Auto) 64.1 Lymph % (Auto) 28.4 [place] % (Auto) 6.8 Eos % (Auto) 0.2 Baso % (Auto) 0.2 Absolute Neuts (auto) 7.8 H Absolute Lymphs (auto) 3.44 Nucleated RBC % 0 Physical Exam Const alert, oriented x3, no apparent distress and average body habitus HEENT normocephalic Head and Scalp: atraumatic Neck full ROM and no lymphadenopathy Resp normal respiratory effort, no retractions and no use of accessory muscles GI normal to inspection, nondistended, normoactive bowel sounds Narrative: Cervical exam: 570/-2. AROM clear fluid Extremity normal to inspection, full ROM and no clubbing, cyanosis or edema Psych mental status grossly normal, affect normal, speech normal and activity/motor behavior normal Assessment & Plan (1) 39 weeks gestation of : PLAN: Patient seen and examined AROM for clear fluid. We will continue expectant management and augment with Pitocin if needed. Patient going natural.
[2020-08-16] MEDS: Ondansetron 4 MG/2 ML Vial IV (11:00)
[2020-08-16] MEDS: Acetaminophen 500 MG Tablet PO (11:21)
[2020-08-16] MEDS: Oxytocin 30 units/NS 500 ml 30 UNITS/500 ML IV.SOLN 334 UNITS IV (11:48)
--- NOTE | 2020-08-16 12:13 | EX.PCM.OBRPT ---
Maternal Data Information [place] Calculator Estimated Delivery Date Method Current WG Current Estimate 08/17/20 Manual 39w 6d Other Estimates 08/02/20 LMP (Uncertain) 42w 0d Vaginal Delivery Findings Description of Procedure: Normal spontaneous vaginal delivery a viable female infant, vertex MARCY. Head and shoulders delivered with ease. Cord cut and clamped. Baby handed off to nursing. Placenta delivered via fundal massage and cord traction. Periclitoral tear noted, 10 cc 1% lidocaine injected, urinary catheter placed, and tear repaired with rapide Vicryl suture. Good hemostasis was noted. EBL 300 cc urine output 50 cc Apgars 8/9
--- NOTE | 2020-08-16 16:14 | NURSING ---
Periclitoral lac approximated, no signs of infection or hematoma
[2020-08-17 00:36] VITALS: BP 128/73; PULSE 78; RESP 18
[2020-08-17 04:59] VITALS: BP 105/61; PULSE 77; RESP 18
--- NOTE | 2020-08-17 07:27 | PCM.PN.OB ---
Subjective Subjective No overnight complaints. Pain well controlled. Minimal lochia Objective Data Objective Data Vital Signs: Vital Signs Temp Pulse Resp BP Pulse Ox 97.8 F 77 18 105/61 97 08/16/20 21:19 08/17/20 04:59 08/17/20 04:59 08/17/20 04:59 08/16/20 16:14 Oxygen Delivery Method Room Air Weight: 160 lb Body Mass Index (BMI) 28.3 Intake & Output: Intake and Output for Last 24 Hours 08/15/20 08/16/20 08/17/20 23:59 23:59 23:59 Intake Total 611.67 / 611.67 Output Total 1200 / 1200 Balance -588.33 / -588.33 Lab / Micro Data Result Diagrams: 08/16/20 09:30 Labs: Laboratory Results - last 24 hr 08/16/20 08/16/20 09:30 09:30 WBC 12.1 H RBC 3.80 L Hgb 12.9 Hct 36.6 L MCV 96.3 MCH 33.9 H MCHC 35.2 RDW Std Deviation 43.5 RDW Coeff of Aster 12.5 Plt Count 258 MPV 8.7 Immature Gran % (Auto) 0.300 Neut % (Auto) 64.1 Lymph % (Auto) 28.4 [place] % (Auto) 6.8 Eos % (Auto) 0.2 Baso % (Auto) 0.2 Absolute Neuts (auto) 7.8 H Absolute Lymphs (auto) 3.44 Nucleated RBC % 0 Blood Type A POSITIVE Antibody Screen NEGATIVE Physical Exam Const alert, oriented x3, no apparent distress and average body habitus HEENT normocephalic and moist oral mucous membranes Head and Scalp: atraumatic Lymph Lymphatic: no lymphadenopathy noted Resp normal respiratory effort, no retractions and no use of accessory muscles GI normal to inspection, nondistended, normoactive bowel sounds GI Narrative: Uterus firm and below umbilicus Extremity normal to inspection, full ROM and no clubbing, cyanosis or edema Psych mental status grossly normal, affect normal, speech normal and activity/motor behavior normal Assessment & Plan (1) : PLAN: day 1 of successful TOLAC. Breast-feeding. Pain well controlled. 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
--- NOTE | 2020-08-17 07:29 | PCM.DC ---
Discharge Instructions Diet Discharge Diet: No restrictions Activity Discharge Activity: Return to Normal Activity, May Drive and May Shower May resume sexual activity in: 4-6 weeks Weight Bearing Status: Weight bearing as tolerated Dressing / Incision Call your doctor if your incision/area has: Continuous Slow Oozing and Foul Smelling Discharge Call your doctor if you observe: Fever of 101 or Higher, Shortness of breath and Chest pain Follow Up Care Please Follow Up With: Yahir Leslie MD When: 2-week telehealth visit, 4 to 6-week visit Test Results: Test results from this visit will be discussed in further detail at your follow-up appointment, if applicable. Discharge Plan Admission Admit Date/Time: 08/16/20 08:40 Attending Provider: Edouard Coulter Primary Care Provider: [facility] Primary Discharge Orders/Prescriptions Prescriptions: No Action PNV cmb#95-ferrous fumarate-FA 1 EACH tablet 1 tab PO DAILY RF: 0 Disposition Discharge Orders: Discharge Patient (Routine); Ordered 08/17/20 Ordered By: Dr. Edouard Coulter
[2020-08-17] MEDS: Acetaminophen 500 MG Tablet 1000 MG PO (09:32)
[2020-08-17 10:00] VITALS: BP 109/52; PULSE 80; RESP 16; TEMP 36.8
[2020-08-17 14:29] VITALS: BP 105/69; PULSE 80; RESP 16; TEMP 36.8
== END 2020-08-17 15:00 | disposition home or self-care (01) | DRG 807 ==
LOC: WPOUT 08:44 → WP 10:49
PROVIDERS: Admitting Provider Obstetrics & Gynecology; Referring Provider Obstetrics & Gynecology; Visit Provider Obstetrics & Gynecology
DX: O34.219 Maternal care for unspecified type scar from previous cesarean delivery (principal); Z37.0 Single live birth; Z3A.39 39 weeks gestation of pregnancy; O70.0 First degree perineal laceration during delivery
CPT/HCPCS: 59025; 59050; 85025; 86850; 86900; 86901; 99218; J7120; G0378; J2405